=== PATIENT | male | born 1980 | race American Indian/Alaskan Native ===

== ENCOUNTER 2020-09-06 23:42 | Emergency (ER) | payer BC, OTHER ==
[~2020-09-06] VITALS: Ht 182.9 cm; Wt 107.0 kg
== END 2020-09-07 00:32 | disposition home or self-care (01) ==
LOC: ED 23:42
DX: S01.511A Laceration without foreign body of lip, initial encounter (principal); Z23 Encounter for immunization; W01.198A Fall on same level from slipping, tripping and stumbling with subsequent striking against other object, initial encounter; F17.200 Nicotine dependence, unspecified, uncomplicated
CPT/HCPCS: 12011; 90471; 90715; 99282-25

== ENCOUNTER 2021-09-01 22:29 | Emergency (ER) | payer BC, OTHER ==
[~2021-09-01] VITALS: Ht 182.9 cm; Wt 106.6 kg
== END 2021-09-01 23:00 | disposition home or self-care (01) ==
LOC: ED 22:29
DX: S90.425A Blister (nonthermal), left lesser toe(s), initial encounter (principal); X58.XXXA Exposure to other specified factors, initial encounter; F17.200 Nicotine dependence, unspecified, uncomplicated
CPT/HCPCS: 99283